=== PATIENT | female | born 1990 | race Caucasian/White ===

== ENCOUNTER → 2017-03-07 | Outpatient (CLI) | payer OTHER ==
[~2017-03-07] MED LIST: ALBUAER2 INH; BCPILLS PO; [UNRECOGNIZED DRUG - REMARK]
== END | disposition home or self-care (01) ==
LOC: C.PAPS 09:12
PROVIDERS: ATTEND Obstetrics & Gynecology
DX: Z01.419 Encounter for gynecological examination (general) (routine) without abnormal findings (principal)

== ENCOUNTER 2025-02-03 07:53 | Inpatient (IN) ==
[2025-02-03] MEDS ORDERED: LIDOCAINE 1% LOCAL 20 ML VIAL INFIL PRN (07:57)
[2025-02-03] MEDS ORDERED: OXYTOCIN 30 UNITS/NSS 30 UNITS/500 ML BAG IV PRN (07:57)
[2025-02-03 08:30] LABS: Hematocrit (blood only) 31.9 % (37.0-47.0); Hemoglobin 11.1 g/dl (12.0-16.0); Mean Corpuscular Hemoglobin 32.8 pg (25.0-34.0); Mean Corpuscular Volume 94.4 fL (80.0-100.0); Platelet Count 189 K/uL (130-400); RDW Standard Deviation 50.1 fL (36.4-46.3); Red Blood Count 3.38 M/uL (4.20-5.40); White Blood Count 8.09 K/ul (4.8-10.8)
[2025-02-03] MEDS: LACTATED RINGER'S 1,000 ML IV PRN (08:36)
[2025-02-03] MEDS: OXYTOCIN 30 UNITS/NSS 30 UNITS/500 ML BAG IV PRN (08:41)
--- NOTE | 2025-02-03 08:53 | History & Physical Report ---
Date of Service February 03, 2025 Assessment & Plan (1) 40 weeks gestation of : Plan Land bulb placed Pitocin Arom when indicated Monitor tracing, category 1 Admission and Anticipated Discharge Date Admission Date: February 03, 2025 History of Present Illness Chief Complaint: IOL Primary Care Provider: NABOR Baez 34 yo at 40w3d admitted for IOL for postdates. Patient denies contractions, fluid loss, bloody show. Active movement. She goes to regular OB appointments. She takes vitamins and docusate sodium as needed. Denies MURILLO, CP, SOB, N/V/D, LE pain. GBS neg, A+ blood type Allergies Allergy/AdvReac Type Severity Reaction Status Date / Time No Known Drug Allergies Allergy Verified 02/02/25 10:18 ARTIFICIAL CINNAMON FLAVORING Allergy Mild Uncoded 02/02/25 10:18 Home Medications Medication Instructions Recorded Confirmed Type 21-iron fu-folic acid PO 07/09/24 02/02/25 History [ Complete] breast pump #1 ea 12/16/24 02/02/25 Rx docusate sodium 100 mg capsule 100 mg PO DAILY 12/16/24 02/02/25 History (Colace) Patient History Medical History Eczema History of chicken pox Surgical History S/P arthroscopic knee surgery S/P ACL reconstruction S/P wisdom tooth extraction Family History (Updated 07/30/24 @ 07:12 by ZAHRAA Amaya) Grandmother (Paternal) Uterine cancer Grandfather (Maternal) Heart disease Myocardial infarction Mother Pre-diabetes Denies family history of Ovarian cancer Prostate cancer Breast cancer Colorectal cancer Social History (Updated 07/30/24 @ 07:13 by ZAHRAA Amaya) Smoking Status: Never smoker Second Hand Exposure: No; Do You Dip or Chew Tobacco: No; Hx Alcohol Use: No Hx Substance Use: No Preferred Language: Burkinan marital status: marital status details: Jacobo Garza (38) [phone] Current Living Situation: Spouse Current Living Situation Comment: lives with spouse, cats-spouse changing litter current occupational status: employed 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 Feels Safe at Home: Yes Childhood Exposure to Second-Hand Smoke: No Dental Care, Regularly: Yes Physical Activity Frequency: 3-4 Times per Week Seatbelt Use: always Sunscreen Use: Yes OB History : 1 Full term: 0 Premature: 0 Total Number of Induced Abortions: 0 Total Number of Spontaneous Abortions: 0 Ectopics: 0 Multiple births: 0 Number of Living Children: 0 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 History Last menstrual period: Yes Menstrual reliability: definite Flow: normal Menstrual regularity: regular Monthly: Yes Age at menarche: 13 On control pills at conception: No Date of positive home test: 05/28/24 Menstrual history comments: cycles 28-30 days Details: last >2-3 years ago Review of Systems All systems reviewed & are unremarkable except as noted in HPI & below Physical Exam Constitutional: WD/WN, vitals as above Respiratory: normal respiratory effort, lungs clear to auscultation Cardiovascular: RRR, no murmur, no edema Gastrointestinal (Abdomen): normal bowel sounds, soft, nontender, no hepatosplenomegaly +gravid Skin: no rashes, warm and dry Psychiatric: A+Ox3, euthymic affect Genitourinary: Manual OB Exam: + cervical dilation 1 cm, + cervical effacement (75%) and + station -2 EFW: 7-[address] Quintanilla Results & Data Vital Signs (Past 12 Hours) Vital Signs Temp Pulse Resp BP 02/03/25 08:08 112 H 105/61 02/03/25 08:07 18 02/03/25 08:07 36.8 C 112 H 18 105/61 Laboratory Results [facility] [address] [place] [address] Obstetrics Visit Signed Patient: TIM REYES Service Date: 02/02/25 MR#: [id number] Ref Phy: Ela Quintanilla MD Acct ID:[id number] Emma Phy: Nicole Leung Date: 1990 Location: [facility] cc: Ela Quintanilla MD~ *NOTICE TO RECEIVING REPUBLICAN/AGENCY This information is strictly Confidential and protected under [place] law. [place] law prohibits you from making any further disclosure of this information unless further disclosure is expressly permitted by the written consent of the person to whom it pertains or is authorized by law. A general authorization for the release of medical or other information is not sufficient for this purpose. Physician Practice accepts no responsibility if the information is made available to any other person, INCLUDING THE PATIENT. Medical Pot Fisher Pot Fisher Determination Visit Includes a Sensitive Exam of the Pt/Pt Requested: Yes Pt Informed of [facility]'s Recommendation for a Medical Pot Fisher: Yes Presence of a Medical Pot Fisher: Accepts Visit ANTOINETTE Calculator Estimated Delivery Date Method Current WG Current Estimate 01/31/25 LMP (Certain) 40w 2d Other Estimates 01/28/25 Ultrasound #1 40w 5d LMP: 04/26/24 : 1 Full term: 0 Premature: 0 Total Number of Induced Abortions: 0 Total Number of Spontaneous Abortions: 0 Ectopics: 0 Multiple births: 0 Number of Living Children: 0 and Delivery Plans AMA Weekly NST's @ 36 weeks IOL 02/03 OB Visit Log Initial Weight: 175 lb 3.2 oz Date EGA Weight FH Pres FHR FM CX BP Alb Glu Edema NOV Prov Notes 07/09/24 10w 4d Nob nurse visit via phone consult.AH 07/18/24 11w 6d 175 lb 3.2 oz(+0 oz) 12 +us c/l/h 128/82 0 4w SMP NOB labs, uacs - ML 08/15/24 15w 6d 176 lb 12.8 oz(+1 lb 9.6 oz) 154 1 0 4w JFD GTT, Unsure of MSAFP- MK 09/12/24 19w 6d 176 lb 12.8 oz(+1 lb 9.6 oz) 20 145 Active 0 4w SMP SP 10/10/24 23w 6d 185 lb 12.8 oz(+10 lb 9.6 oz) 24 140s Active 108 0 4w LAS SP 11/06/24 27w 5d 189 lb(+13 lb 12.8 oz) 28 135 Active 108/7 2 0 2w LAS 28wk labs, 1hr gtt, uacs, Tdap, papers. c/o reflux(taking tums) - MLFMLA, 28wk labs, 1hr gtt, uacs, Tdap, papers. c/o reflux(taking tums) - ML 11/21/24 29w 6d 187 lb 12.8 oz(+12 lb 9.6 oz) 30 130s Active 0 2w LAS SP 12/03/24 31w 4d 190 lb 12.8 oz(+15 lb 9.6 oz) 32 150 Active 0 2w MMC SP 12/16/24 33w 3d 192 lb 12.8 oz(+17 lb 9.6 oz) 34 140 Active 122/78 0 2w SMP MK 12/30/24 35w 3d 196 lb 8 oz(+21 lb 4.8 oz) 35 140 Active 1 0 1w KBB ML 01/06/25 36w 3d 198 lb 9.6 oz(+23 lb 6.4 oz) 36 V NST Active 0 1w MLN NST #1 AMA, GBS today - SP 01/13/25 37w 3d 199 lb 6.4 oz(+24 lb 3.2 oz) Term V NST Active 124/82 0 1w MLN NST #2 AMA - ML 01/20/25 38w 3d 201 lb(+25 lb 12.8 oz) V NST Active 12 0 1w MLN NST #3 AMA- MK 01/28/25 39w 4d 204 lb 11.2 oz(+29 lb 8 oz) V NST Activ e c/l/h 116/78 1w SLN NST #4 AMA - SP 02/02/25 40w 2d 203 lb 11.2 oz(+28 lb 8 oz) Term V NST A ctive c/75/-2 134/72 0 Other: JBS NST #5 AMA, PD - ML NST #5 AMA, PD. Cervix ck - ML Comments Visit Date: 02/02/25 Last Updated by: Ela Quintanilla MD IOL tomorrow. Cervix closed but very soft; I think amenable to land placement with pit in the AM, will plan for that. Visit Date: 01/28/25 Last Updated by: Betina Pak MD NST reactive. Reviewed IOL timing, desires 02/03 for postdates Visit Date: 01/20/25 Last Updated by: NABOR Guzman Patient states feeling well. Denies contractions, leaking of fluid, and states feeling movement. NST reassuring but non-reactive; BPP 01/16. Di scussed movement counts. Continue weekly NSTs. Questions answered Visit Date: 01/13/25 Last Updated by: NABOR Guzman Patient states feeling well. Denies contractions, leaking of fluid, and states feeling movement. More discomforts recently; discussed relief measures. GBS negative; reviewed with patient. NST reactive today. Vertex by US. Labor precautions reviewed Visit Date: 01/06/25 Last Updated by: NABOR Guzman Patient states feeling well. Denies contractions, leaking of fluid, and states feeling movement. NST reactive today. GBS today. Continue weekly NSTs Visit Date: 12/30/24 Last Updated by: Caroline Burgos, DO GBS, NST next week. Visit Date: 12/16/24 Last Updated by: Manjula Gomes MD, FACOG has felt some more larger volume voids this am. no burning. will monitor. Visit Date: 12/03/24 Last Updated by: Victorina Albarado MD, FACOG baby active. some leg swelling at end of the day. no BH ctns or change in discharge Visit Date: 11/21/24 Last Updated by: NABOR Pemberton Feeling well. Denies N/V. +PNV. Denies, leaking of fluid, vaginal bleeding and contractions. Good movement. Reviewed 28wk labs. Passed 2hr gtt. Discussed GWG goals. Visit Date: 11/06/24 Last Updated by: NABOR Pemberton Feeling well. Denies N/V. +PNV. Denies, leaking of fluid, vaginal bleeding and contractions. Good movement. + hiccups on exam today. c/o reflux - discussed pepcid in conjunction with Tums. Also with some constipation - discussed hydration and Colace. 28wk labs, gtt, Tdap today. FMLA papers given to Karyn. Visit Date: 10/10/24 Last Updated by: NABOR Pemberton Denies N/V. +PNV. Denies leaking of fluid, vaginal bleeding and cramping. Feeling baby move. 28wk gtt NOV. Visit Date: 09/12/24 Last Updated by: Manjula Gomes MD, FACOG normal jennifer u/s today. limitations of u/s reviewed. reviewed all labs. Visit Date: 08/15/24 Last Updated by: Christian Wong MD, FACOG u/s ordered Visit Date: 07/18/24 Last Updated by: Manjula Gomes MD, FACOG nob, reviewed testing pnl pnv. Discussion held regarding all possible aneuploidy testing, both screening and diagnostic. Timing of these tests and benefits and risks of timing of test particularly for NIPT reviewed. These tests are personal choice. Patient given time to ask questions. Inheritable genetic screening based on ethnicity also discussed/offered, including CF, SMA. AMA, reviewed nsts wkly at 36wks. likely will proceed with nipt, not sure about cf/sma. Nursing Visit Reasons: NST/TERRANCE NEEDS TO BE THIS DAY W/OB1 Allergies No Known Drug Allergies Allergy (Verified 02/02/25 10:18) ARTIFICIAL CINNAMON FLAVORING Allergy (Mild, Uncoded 02/02/25 10:18) Medications 21-iron fu-folic acid [ Complete] PO 07/09/24 [History Confirmed 02/02/25] breast pump #1 ea 12/16/24 [Rx Confirmed 02/02/25] docusate sodium 100 mg capsule (Colace) 100 mg PO DAILY 12/16/24 [History Confirmed 02/02/25] LMP: 04/26/24 Patient Confirmed : Yes Travel Screen Exposure Risk Identification Exposure to or Close Contact to Anyone Dx Infectious Disease (Last 10 Days): No Symptom Evaluation Are You having any Infectious Disease Symptoms: No Infectious Disease Testing Hx Infectious Disease Testing in Last 30 Days: No [facility] Problem List (Updated 12/16/24 @ 11:07 by Manjula Gomes MD, FACOG) Encounter for care and examination of lactating mother Encounter for anatomic survey Early stage of Elderly primigravida Medical History Eczema History of chicken pox . Surgical History S/P arthroscopic knee surgery S/P ACL reconstruction S/P wisdom tooth extraction . Family History (Updated 07/30/24 @ 07:12 by ZAHRAA Amaya) Grandmother (Paternal) Uterine cancerGrandfather (Maternal) Heart disease Myocardial infarctionMother Pre-diabetesDenies family history of Ovarian cancer Prostate cancer Breast cancer Colorectal cancer . 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 Feels Safe at Home: Yes Childhood Exposure to Second-Hand Smoke: No Dental Care, Regularly: Yes Physical Activity Frequency: 3-4 Times per Week Seatbelt Use: always Sunscreen Use: Yes History : 1 Full term: 0 Premature: 0 Total Number of Induced Abortions: 0 Total Number of Spontaneous Abortions: 0 Ectopics: 0 Multiple births: 0 Number of Living Children: 0 Menstrual History Last menstrual period: Yes Menstrual reliability: definite Flow: normal Menstrual regularity: regular Monthly: Yes Age at menarche: 13 On control pills at conception: No Date of positive home test: 05/28/24 Menstrual history comments: cycles 28-30 days Details: last >2-3 years ago Medical History Medical History: Diabetes: Neg, Hypertension: Neg, Heart Disease: Neg, Autoimmune Disease: Neg, Kidney Disease/UTI: Neg, Neurologic/Epilepsy: Neg, Psychiatric: Neg, Depression/PPD: Neg, Hepatitis/Liver Disease: Neg, Varicosities/Phlebitis: Neg, Thyroid Dysfunction: Neg, Trauma/Violence: Neg, History of Blood Transfusion: Neg, Hematologic Disorders: Neg, GI Disorders: Neg, Dermatologic Disorders: Pos (hx eczema), D (Rh) Sensitized: Neg, Pulmonary(TB, Asthma): Neg, Seasonal Allergies: Neg, Drug/Latex Allergic Reactions: Neg, 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, 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: Neg, Operations/Hospitalizations(Year/reason): Pos (anterior cruciate ligament reconstruction, arthroscopic knee, wisdom teeth), Anesthesia Complications: Neg, Hx of abnml PAP: Neg, Uterine Anomaly/JULIUS: Neg, Infertilitiy: Neg, ART treatment: Neg, Complications: Neg, Cancer: Neg, Relevant Family Hx: Neg and Other: Pos (+ chicken pox) Tobacco: Denies use Alcohol: Denies use Illicit/Recreational Drugs: Denies use Symptoms since LMP Symptoms since LMP: nausea, fatigue, breast tenderness Infection History & Risk Profile Infection History: Hx Chlamydia: No, Hx Genital Herpes: No, Hx Gonorrhea: No, Hx Hepatitis: No, Hx HIV/AIDS: No, Hx Human Papilloma Virus (HPV): No, Hx Syphilis: No, Hx Tuberculosis: No, Rash or viral illness since LMP: Yes (eczema) and Prior GBS infected child: No Genetic Screening & Stock Raiser Genetic Screening/Teratology Counseling - Includes patient, baby's father, or anyone in either family with: Genetic Screening and Stock Raiser: Yes 1. Patient's age 35 years or older as of estimated date of delivery, No 2. Thalassemia (Japanese, Botswanan, Mediterranean, or Background); MCV less than 80, No 3. Neural Tube Defect (Meningomyelocele, Spina Bifida, or Anencephaly), No 4. Hepatitis B,C, No 5. Down Syndrome, No 6. Wilver-Sachs (Ashkenazi Alevism, Cajun, Bengali [place]), No 7. Sujata Disease (Ashkenazi Alevism), No 8. Familial Dysautonomia (Ashkenazi Alevism), No 9. Sickle Cell Disease or Trait (), No 10. Hemophilia or other blood disorders, No 11. Muscular Dystrophy, No 12. Cystic Fibrosis, No 13. Dunlap's Chorea, No 14. Mental Retardation/Autism, No 15. Other inherited genetic or chromosomal disorder, No 16. Maternal Metabolic Disorder (EG,TYPE 1 Diabetes, PKU), No 17. Patient or baby's father had a child with defects not listed above, No 18. Recurrent loss or a stillbirth, No 19. Medications (including supplements, vitamins, herbs or otc drugs)/illicit/recreational drugs/alcohol since last menstrual period and No 20. Any other Comments/Counseling: spouse healthy, fm hx: unremarkable Initial Phyiscal Exam Initial Physical Examination Date: 07/18/24 Initial Physical Exam: 1. HEENT: normal, 4. Thyroid: normal, 5. Breasts: normal, 6. Lungs: normal, 7. Heart: normal, 8. Abdomen: normal, 9. Extremities: normal, 10. Skin: normal, 11. Lymph Nodes: normal, 12. Vulva: normal, 13. Vagina: normal, 14. Cervix: normal and 15. Adnexa: normal Comments (Number and explain abnormals): +fhts on u/s Exam By:: Eliseo Source: [employer] Ed First Trimester Education Checklist Plans/Education - by Trimester First Trimester Education: HIV and other routine tests: discussed, Influenza vaccine: discussed, Nutrition and weight gain counseling: special diet: discussed, Exercise: discussed (walking), Use of any medications (including supplements, vitamins, herbs, or OTC drugs): discussed, Environmental/work hazards: discussed, Travel: discussed, Seatbelt use: discussed, Toxoplasmosis precautions (cats/raw meat): discussed, Childbirth classes/Hospital facilities: discussed, Anticipated course of care: discussed and Indications for ultrasound: discussed Third Trimester Education Checklist Third Trimester Education: Safe Sleep: discussed and Education([id number]): discussed Labs Lab Results OB Labs: Blood Type A Positive 07/18/24 Antibody Screen NEGATIVE 07/18/24 Hgb 11.3 g/dl (12.0-16.0) L 11/06/24 Hct 33.3 % (37.0-47.0) L 11/06/24 MCV 91.5 fL (80.0-100.0) 07/18/24 Plt Count 249 K/uL (130-400) 07/18/24 Rubella IgG Antibody Immune (Immune) 07/18/24 Treponema pallidum Ab Negative (Negative) 11/06/24 Hep Bs Antigen Negative (Negative) 07/18/24 Hepatitis C Antibody Negative (Negative) 07/18/24 HIV 1&2 Ab/P24 Ag 4thGn Negative (Negative) 07/18/24 Glucose 1 Hr 50 gm 139 mg/dl (70-130) H 11/06/24 Maternal Serum AFP 17.3 ng/mL 08/15/24 OB Optional Labs: Chlamydia trachomatis RNA Not Detected (NotDetected) 07/18/24 Neisseria gonorrhoeae RNA Not Detected (NotDetected) 07/18/24 Alpha Fetoprotein Triple Screen SEE NOTE 08/15/24 Monitoring External Monitor HR: 150 Variability: moderate Accelerations: present Decelerations: absent Contractions: none Category 1 tracing Resident Activity Tracking Resident Involvement: Resident Care Provided Care Provided: OB Delivery
[2025-02-03] MEDS ORDERED: BUPIVACAINE 0.25% PF 30 ML VIAL EPI PRN (14:14)
[2025-02-03] MEDS ORDERED: NALBUPHINE HCL INJ 10 MG/ML AMP IV PRN (14:14)
[2025-02-03] MEDS ORDERED: ROPIVACAINE 0.5% PF 5 MG/ML 20 ML VIAL EPI PRN (14:14)
[2025-02-03] MEDS ORDERED: NALOXONE HCL 0.4 MG/1 ML VIAL/CARP IV PRN (14:14)
[2025-02-03] MEDS ORDERED: diphenhydrAMINE 50 MG/ML VIAL IV PRN (14:14)
[2025-02-03] MEDS ORDERED: NALOXONE HCL 1 MG in SODIUM CHLORIDE 0.9% 1,000 ML IV PRN (14:14)
[2025-02-03] MEDS ORDERED: SODIUM CHLORIDE 0.9% PF INJ 10 ML VIAL EPI PRN (14:14)
[2025-02-03] MEDS ORDERED: LIDOCAINE 2% MPF LOCAL 5 ML VIAL EPI PRN (14:14)
--- NOTE | 2025-02-03 14:14 | Anesthesiology Consultation ---
Date of Service February 03, 2025 Assessment & Plan Chart Review Chart Review: Acceptable Risk for Labor Epidural Consults Requested none History Height/Weight Height: 5 ft 5 in Weight: 92.079 kg Allergies Allergy/AdvReac Type Severity Reaction Status Date / Time No Known Drug Allergies Allergy Verified 02/02/25 10:18 ARTIFICIAL CINNAMON FLAVORING Allergy Mild Uncoded 02/02/25 10:18 Medications Home Medications Medication Instructions Recorded Confirmed Last Taken 21-iron fu-folic acid 1 tab PO DAILY 07/09/24 02/03/25 02/03/25 04:00 [ Complete] breast pump #1 ea 12/16/24 02/02/25 Unknown docusate sodium 100 mg capsule 100 mg PO DAILY PRN Constipation 12/16/24 02/03/25 Unknown (Colace) Active Medications Generic Name Dose Route Start Last Admin Trade Name Freq PRN Reason Stop Dose Admin Lactated Ringer's 1,000 mls @ 125 mls/hr 02/03/25 07:57 02/03/25 14:11 Lr IV 02/05/25 07:56 125 mls/hr .Q8H PRN Infusion L&D Protocol Protocol Oxytocin 30 units in 500 mls @ 6 mls/hr 02/03/25 08:20 02/03/25 13:20 Pitocin 30 Units/Nss IV 02/05/25 08:19 0.36 units/hr .Q24H PRN 6 mls/hr Labor Induction/Augmentation Titration Protocol 0.36 UNITS/HR Past Medical History Medical History Eczema History of chicken pox Past Family History Family History Grandmother (Paternal) Uterine cancer Grandfather (Maternal) Heart disease Myocardial infarction Mother Pre-diabetes Denies family history of Ovarian cancer Prostate cancer Breast cancer Colorectal cancer Past Surgical History Surgical History S/P arthroscopic knee surgery S/P ACL reconstruction S/P wisdom tooth extraction Social History Smoking Status: Never smoker Do You Dip or Chew Tobacco: No Hx Alcohol Use: No Hx Substance Use: No substance use type: does not use Physical Exam Vital Signs Last Vital Signs Temp 36.9 C 02/03/25 11:32 Pulse 85 02/03/25 14:08 Resp 18 02/03/25 13:00 BP 108/67 02/03/25 14:01 Pulse Ox 98 02/03/25 14:08 O2 Del Method Room Air 02/03/25 08:50 Testing Laboratory Results 02/03/25 08:17
[2025-02-03] MEDS: LIDOCAINE 2%/EPINEPHRINE 1:200,000 20 ML PF ONE (14:45)
[2025-02-03] MEDS: fentANYL 2 MCG/ML BUPIVacaine 0.125%-NSS 100ML BAG ONE (14:46)
[2025-02-03] MEDS: BUPIVACAINE 0.25% PF 30 ML VIAL ONE (14:46)
[2025-02-03] MEDS: SODIUM CHLORIDE 0.9% PF INJ 10 ML VIAL EPI STA (18:09)
[2025-02-03] MEDS: LIDOCAINE 2%/EPINEPHRINE 1:200,000 20 ML PF EPI STA (18:09)
[2025-02-03] MEDS: BUPIVACAINE 0.25% PF 30 ML VIAL EPI STA (18:09)
[2025-02-03] MEDS: SODIUM CHLORIDE 0.9% PF INJ 10 ML VIAL ONE (18:09)
--- NOTE | 2025-02-03 21:06 | Labor Progress Brief Note ---
Date of Service February 03, 2025 Subjective Recent events: Per RN, patient asked to sit upright. As soon as she changed position her blood pressure dropped to 83/51 and pulse dropped to 82, and she vomited. At the same time her heart tracing began to exhibit marked variability and variable decels to a candace in the 90s with rapid swings back up to 160s, and moderate variability throughout. Cervix checked per RN at 6/100/0. I came to bedside right after cervix check, having noted the tracing change. Patient seen in rm [id number] where she is lying on her side watching the monitor with her mother at bedside holding her hand. She feels shaky but says it's improving over the last few minutes. She voices agreement with her mom who tells us the patient has a history of severe anxiety and is really feeling anxious/stressed by the labor process. Assessment & Plan (1) 40 weeks gestation of : Plan: Induction for postdates, has progressed to 6cm with land followed by pitocin. FHT intermittently cat 2, but at the moment are recovering. Latest episode of Cat 2 tracing appears to be 2/2 hypotensive episode which has since resolved, current BP improved to 113/65. Unclear if this was a vagal/autonomic event due to her severe anxiety, or had another cause, but she is responding to usual resuscitative measures. For now will observe closely and resume IOL when able per tracing. Admission and Anticipated Discharge Date Admission Date: February 03, 2025 Physical Exam Genitourinary: Cvx check per RN As described above, hypotension --> emesis --> FHT change to Cat 2 with decels, which prompted my visit. [place] Q2min while pit was in use, but pit was turned off during the FHT pattern change and an IVF bolus was started. [place] then spaced to Q4-5m. FHT thereafter settled into a baseline of 170, mod rosemary, no accels and no decels for about 20 min. Results & Data Vital Signs (Past 12 Hours) Vital Signs Temp Pulse Resp BP Pulse Ox O2 Del Method 02/03/25 20:53 90 100 02/03/25 20:49 83 113/65 02/03/25 20:48 83 100 02/03/25 20:44 18 02/03/25 20:44 98.8 F 18 02/03/25 20:43 85 100 08/26/25 20:38 91 H 100 02/03/25 20:35 82 119/69 02/03/25 20:33 102 H 100 02/03/25 20:28 105 H 100 02/03/25 20:25 130 H 94/66 L 02/03/25 20:23 139 H 99 02/03/25 20:20 93 H 83/51 L 02/03/25 20:19 88 80 L 02/03/25 20:18 91 H 99 02/03/25 20:13 99 H 99 02/03/25 20:11 107 H 117/60 02/03/25 20:10 126 H 88 L 02/03/25 20:08 111 H 100 02/03/25 20:05 105 H 88 L 02/03/25 20:03 100 H 99 02/03/25 19:58 90 100 02/03/25 19:53 107 H 100 02/03/25 19:50 87 111/56 L 93 02/03/25 19:48 108 H 98 02/03/25 19:43 98 H 98 02/03/25 19:38 97 H 99 02/03/25 19:35 105 H 109/62 02/03/25 19:33 101 H 99 02/03/25 19:28 107 H 98 02/03/25 19:23 92 H 98 02/03/25 19:21 83 111/65 02/03/25 19:19 89 94 02/03/25 19:18 93 H 99 02/03/25 19:13 94 H 97 02/03/25 19:12 90 94 02/03/25 19:08 90 99 02/03/25 19:06 88 117/70 02/03/25 19:05 Room Air 02/03/25 19:05 94 H 93 02/03/25 19:03 98.6 F 90 16 98 02/03/25 18:59 85 93 02/03/25 18:58 83 95 02/03/25 18:53 98 H 93 02/03/25 18:51 85 121/63 02/03/25 18:48 96 H 98 02/03/25 18:43 97 H 99 02/03/25 18:38 88 97 02/03/25 18:34 110 H 121/54 L 02/03/25 18:33 97 H 99 02/03/25 18:30 90 105/56 L 02/03/25 18:28 92 H 99 02/03/25 18:25 101 H 93 02/03/25 18:23 99 H 98 02/03/25 18:19 97 H 91 02/03/25 18:18 88 97 02/03/25 18:13 99 H 91 02/03/25 18:08 89 100 02/03/25 18:05 93 H 100/55 L 02/03/25 18:03 93 H 99 02/03/25 17:58 91 H 99 02/03/25 17:53 101 H 100 02/03/25 17:52 88 93 02/03/25 17:49 85 119/72 02/03/25 17:48 78 99 02/03/25 17:47 95 H 93 02/03/25 17:43 86 99 02/03/25 17:40 98.2 F 81 18 90 02/03/25 17:38 85 98 02/03/25 17:37 78 118/67 02/03/25 17:34 77 182/134 H 02/03/25 17:33 84 100 02/03/25 17:31 82 92 02/03/25 17:30 20 02/03/25 17:30 20 02/03/25 17:28 81 100 02/03/25 17:25 103 H 89 L 02/03/25 17:23 90 183/133 H 100 02/03/25 17:19 91 H 93 02/03/25 17:18 92 H 99 02/03/25 17:13 86 100 02/03/25 17:08 79 100 02/03/25 17:06 74 90 02/03/25 17:03 77 100 02/03/25 16:58 61 100 02/03/25 16:53 94 H 97 02/03/25 16:49 71 92/57 L 02/03/25 16:48 79 97 02/03/25 16:43 84 98 02/03/25 16:38 87 98 02/03/25 16:34 84 100/58 L 02/03/25 16:33 84 96 02/03/25 16:28 98 H 98 02/03/25 16:23 82 98 02/03/25 16:20 70 108/66 02/03/25 16:18 71 96 02/03/25 16:13 78 98 02/03/25 16:10 72 113/66 02/03/25 16:08 80 97 02/03/25 16:03 79 97 02/03/25 16:00 18 02/03/25 16:00 18 02/03/25 15:58 80 98 02/03/25 15:53 75 99 02/03/25 15:50 89 102/57 L 02/03/25 15:48 89 98 02/03/25 15:43 83 97 02/03/25 15:38 87 96 02/03/25 15:35 100 H 105/58 L 02/03/25 15:33 88 97 02/03/25 15:28 110 H 96 02/03/25 15:23 96 H 97 02/03/25 15:19 101 H 107/61 02/03/25 15:18 96 H 96 02/03/25 15:14 97 H 107/62 02/03/25 15:13 98.1 F 88 18 96 02/03/25 15:09 86 108/63 02/03/25 15:08 78 96 02/03/25 15:07 73 108/65 02/03/25 15:05 78 103/57 L 02/03/25 15:03 97 02/03/25 15:03 93 H 02/03/25 15:03 78 111/56 L 02/03/25 15:01 82 02/03/25 15:01 92 H 121/59 L 81 L 02/03/25 14:58 77 99 02/03/25 14:57 94 H 112/72 02/03/25 14:55 83 109/62 02/03/25 14:53 95 H 114/84 98 02/03/25 14:51 93 H 111/75 02/03/25 14:49 93 H 113/69 02/03/25 14:48 99 H 98 02/03/25 14:45 89 120/76 02/03/25 14:43 101 H 118/76 98 02/03/25 14:41 87 117/73 02/03/25 14:39 96 H 131/80 02/03/25 14:38 94 H 96 02/03/25 14:37 81 123/81 02/03/25 14:35 101 H 118/78 02/03/25 14:33 91 H 97 02/03/25 14:28 95 H 98 02/03/25 14:23 91 H 98 02/03/25 14:18 91 H 99 02/03/25 14:13 95 H 97 02/03/25 14:08 85 98 02/03/25 14:01 90 108/67 02/03/25 13:58 90 97 02/03/25 13:53 84 98 02/03/25 13:48 72 97 02/03/25 13:13 85 116/55 L 02/03/25 13:00 18 02/03/25 13:00 18 02/03/25 12:01 83 109/58 L 02/03/25 11:32 98.4 F 02/03/25 11:30 18 02/03/25 11:30 18 02/03/25 11:01 75 115/66 02/03/25 10:30 18 02/03/25 10:30 18 02/03/25 10:02 90 109/62 02/03/25 10:00 16 02/03/25 10:00 16 02/03/25 09:01 85 107/64 Coding Level of Care Code None Diagnoses 40 weeks gestation of Z3A.40
[2025-02-03] MEDS: fentANYL 2 MCG/ML BUPIVacaine 0.125%-NSS 100ML BAG EPI PRN (21:23)
--- NOTE | 2025-02-03 21:53 | Anesthesia Procedure Note ---
Date of Service February 03, 2025 Anesthesia Epidural Re-Dose Vital Signs Temp Pulse Resp BP Pulse Ox O2 Del Method 37.1 C 102 H 18 128/75 98 Room Air 02/03/25 20:44 02/03/25 21:50 02/03/25 20:44 02/03/25 21:50 02/03/25 21:48 02/03/25 19:05 Notes Pain Intensity: 6 Dilatation (cm): 6.0 Effacement (%): 100 Called by nursing to evaluate epidural as the patient is having increased pain. The epidural was re-dosed with the following medications (all medications via epidural route) after negative aspiration of the epidural catheter for CSF/HEME. 5cc 2% Lidocaine with epi via epidural After Epidural Re-Dose Mental Status: alert / awake / arousable and participated in evaluation Pain: improving with treatment Airway Patency, RR, SpO2: stable & adequate BP & HR: stable & adequate
--- NOTE | 2025-02-03 22:33 | Labor Progress Brief Note ---
Date of Service February 03, 2025 Subjective Recent epidural redose due to pain. Patient got relief of contraction pain, however had hypotension and nausea/emesis shortly after redose. Assessment & Plan (1) 40 weeks gestation of : Plan Elevated baseline but good variability and accels. No maternal fever, urine output is good. Continue close obs. Likely related to recent epidural redose and treatment of resulting hypotension with ephedrine. Zofran to be added for prn nausea per request of patient. Admission and Anticipated Discharge Date Admission Date: February 03, 2025 Physical Exam Genitourinary: [place] Q4, pit @ 2 FHT 165 mod rosemary +acc -dec Cvx 6/100/0 Results & Data Vital Signs (Past 12 Hours) Vital Signs Temp Pulse Resp BP Pulse Ox O2 Del Method 02/03/25 22:29 162 H 132/68 02/03/25 22:28 159 H 84 L 02/03/25 22:25 111 H 82/41 L 02/03/25 22:23 104 H 84 L 02/03/25 22:18 115 H 91 02/03/25 22:13 116 H 99 02/03/25 22:12 104 H 99/53 L 02/03/25 22:10 103 H 102/57 L 02/03/25 22:08 99 02/03/25 22:08 115 H 02/03/25 22:08 121 H 87/59 L 02/03/25 22:06 123 H 83/45 L 02/03/25 22:03 118 H 100 02/03/25 22:02 110 H 81/53 L 02/03/25 22:00 111 H 79/51 L 02/03/25 21:58 99 02/03/25 21:58 112 H 02/03/25 21:58 118 H 90/51 L 02/03/25 21:56 117 H 93/52 L 02/03/25 21:54 107 H 108/54 L 02/03/25 21:53 118 H 78 L 02/03/25 21:50 102 H 128/75 02/03/25 21:48 119 H 98 02/03/25 21:43 128 H 99 02/03/25 21:38 107 H 100 02/03/25 21:36 99 H 136/75 02/03/25 21:33 97 H 100 02/03/25 21:28 107 H 100 02/03/25 21:23 102 H 100 02/03/25 21:20 100 H 131/56 L 94 02/03/25 21:18 93 H 98 02/03/25 21:13 104 H 98 02/03/25 21:08 98 H 99 02/03/25 21:04 88 113/68 02/03/25 21:03 97 H 100 02/03/25 20:58 97 H 100 02/03/25 20:53 90 100 02/03/25 20:49 83 113/65 02/03/25 20:48 83 100 02/03/25 20:44 18 02/03/25 20:44 98.8 F 18 02/03/25 20:43 85 100 02/03/25 20:38 91 H 100 02/03/25 20:35 82 119/69 02/03/25 20:33 102 H 100 02/03/25 20:28 105 H 100 02/03/25 20:25 130 H 94/66 L 02/03/25 20:23 139 H 99 02/03/25 20:20 93 H 83/51 L 02/03/25 20:19 88 80 L 02/03/25 20:18 91 H 99 02/03/25 20:13 99 H 99 02/03/25 20:11 107 H 117/60 02/03/25 20:10 126 H 88 L 02/03/25 20:08 111 H 100 02/03/25 20:05 105 H 88 L 02/03/25 20:03 100 H 99 02/03/25 19:58 90 100 02/03/25 19:53 107 H 100 02/03/25 19:50 87 111/56 L 93 02/03/25 19:48 108 H 98 02/03/25 19:43 98 H 98 02/03/25 19:38 97 H 99 02/03/25 19:35 105 H 109/62 02/03/25 19:33 101 H 99 02/03/25 19:28 107 H 98 02/03/25 19:23 92 H 98 02/03/25 19:21 83 111/65 02/03/25 19:19 89 94 02/03/25 19:18 93 H 99 02/03/25 19:13 94 H 97 02/03/25 19:12 90 94 02/03/25 19:08 90 99 02/03/25 19:06 88 117/70 02/03/25 19:05 Room Air 02/03/25 19:05 94 H 93 02/03/25 19:03 98.6 F 90 16 98 02/03/25 18:59 85 93 02/03/25 18:58 83 95 02/03/25 18:53 98 H 93 02/03/25 18:51 85 121/63 02/03/25 18:48 96 H 98 02/03/25 18:43 97 H 99 02/03/25 18:38 88 97 02/03/25 18:34 110 H 121/54 L 02/03/25 18:33 97 H 99 02/03/25 18:30 90 105/56 L 02/03/25 18:28 92 H 99 02/03/25 18:25 101 H 93 02/03/25 18:23 99 H 98 02/03/25 18:19 97 H 91 02/03/25 18:18 88 97 02/03/25 18:13 99 H 91 02/03/25 18:08 89 100 02/03/25 18:05 93 H 100/55 L 02/03/25 18:03 93 H 99 02/03/25 17:58 91 H 99 02/03/25 17:53 101 H 100 02/03/25 17:52 88 93 02/03/25 17:49 85 119/72 02/03/25 17:48 78 99 02/03/25 17:47 95 H 93 02/03/25 17:43 86 99 02/03/25 17:40 98.2 F 81 18 90 02/03/25 17:38 85 98 02/03/25 17:37 78 118/67 02/03/25 17:34 77 182/134 H 02/03/25 17:33 84 100 02/03/25 17:31 82 92 02/03/25 17:30 20 02/03/25 17:30 20 02/03/25 17:28 81 100 02/03/25 17:25 103 H 89 L 02/03/25 17:23 90 183/133 H 100 02/03/25 17:19 91 H 93 02/03/25 17:18 92 H 99 02/03/25 17:13 86 100 02/03/25 17:08 79 100 02/03/25 17:06 74 90 02/03/25 17:03 77 100 02/03/25 16:58 61 100 02/03/25 16:53 94 H 97 02/03/25 16:49 71 92/57 L 02/03/25 16:48 79 97 02/03/25 16:43 84 98 02/03/25 16:38 87 98 02/03/25 16:34 84 100/58 L 02/03/25 16:33 84 96 02/03/25 16:28 98 H 98 02/03/25 16:23 82 98 02/03/25 16:20 70 108/66 02/03/25 16:18 71 96 02/03/25 16:13 78 98 02/03/25 16:10 72 113/66 02/03/25 16:08 80 97 02/03/25 16:03 79 97 02/03/25 16:00 18 02/03/25 16:00 18 02/03/25 15:58 80 98 02/03/25 15:53 75 99 02/03/25 15:50 89 102/57 L 02/03/25 15:48 89 98 02/03/25 15:43 83 97 02/03/25 15:38 87 96 02/03/25 15:35 100 H 105/58 L 02/03/25 15:33 88 97 02/03/25 15:28 110 H 96 02/03/25 15:23 96 H 97 02/03/25 15:19 101 H 107/61 02/03/25 15:18 96 H 96 02/03/25 15:14 97 H 107/62 02/03/25 15:13 98.1 F 88 18 96 02/03/25 15:09 86 108/63 02/03/25 15:08 78 96 02/03/25 15:07 73 108/65 02/03/25 15:05 78 103/57 L 02/03/25 15:03 97 02/03/25 15:03 93 H 02/03/25 15:03 78 111/56 L 02/03/25 15:01 82 02/03/25 15:01 92 H 121/59 L 81 L 02/03/25 14:58 77 99 08/26/25 14:57 94 H 112/72 02/03/25 14:55 83 109/62 02/03/25 14:53 95 H 114/84 98 02/03/25 14:51 93 H 111/75 02/03/25 14:49 93 H 113/69 02/03/25 14:48 99 H 98 02/03/25 14:45 89 120/76 02/03/25 14:43 101 H 118/76 98 02/03/25 14:41 87 117/73 02/03/25 14:39 96 H 131/80 02/03/25 14:38 94 H 96 02/03/25 14:37 81 123/81 02/03/25 14:35 101 H 118/78 02/03/25 14:33 91 H 97 02/03/25 14:28 95 H 98 02/03/25 14:23 91 H 98 02/03/25 14:18 91 H 99 02/03/25 14:13 95 H 97 02/03/25 14:08 85 98 02/03/25 14:01 90 108/67 02/03/25 13:58 90 97 02/03/25 13:53 84 98 02/03/25 13:48 72 97 02/03/25 13:13 85 116/55 L 02/03/25 13:00 18 02/03/25 13:00 18 02/03/25 12:01 83 109/58 L 02/03/25 11:32 98.4 F 02/03/25 11:30 18 02/03/25 11:30 18 02/03/25 11:01 75 115/66 Coding Level of Care Code None Diagnoses 40 weeks gestation of Z3A.40
[2025-02-03] MEDS: ONDANSETRON INJ 2 MG/ML 2 ML VIAL IV PRN (23:14)
--- NOTE | 2025-02-04 01:36 | Labor Progress Brief Note ---
Date of Service February 04, 2025 Subjective Comfortable with epidural Denies fever/chills, denies nausea. Assessment & Plan (1) Non-reassuring cardiotocographic tracing: Plan: FHT Cat 2, and patient has remained at 6cm for quite some time / is remote from delivery. Not seeing reduction in heart baseline with usual resuscitative measures. No maternal fever yet though temp has elevated slightly; likely early development of chorioamnionitis which will progress if continues. Discussed the above with patient and , and recommended at this time that we proceed to section. They are agreeable. All questions answered to stated satisfaction. Azithromycin and Ancef to be given perioperatively. (2) Failure to progress in labor: Admission and Anticipated Discharge Date Admission Date: February 03, 2025 Physical Exam Genitourinary: 6/100/0 LOF clear FHT 170 mod [place] +acc +early and variable decels Results & Data Vital Signs (Past 12 Hours) Vital Signs Temp Pulse Resp BP Pulse Ox O2 Del Method 02/04/25 01:28 125 H 96 02/04/25 01:23 155 H 97 02/04/25 01:18 147 H 95 02/04/25 01:13 139 H 95 02/04/25 01:12 136 H 100/56 L 02/04/25 01:08 106 H 93 02/04/25 01:03 133 H 96 02/04/25 01:01 99.7 F H 02/04/25 00:58 86 93 02/04/25 00:56 86 107/56 L 02/04/25 00:53 100 H 94 02/04/25 00:48 83 94 02/04/25 00:43 95 H 108/59 L 93 02/04/25 00:38 93 H 93 02/04/25 00:33 90 93 02/04/25 00:28 105 H 92 02/04/25 00:27 108 H 109/63 02/04/25 00:23 89 92 02/04/25 00:18 104 H 92 02/04/25 00:15 16 02/04/25 00:15 100.2 F H 16 02/04/25 00:13 98 H 93 02/04/25 00:11 118 H 110/56 L 02/04/25 00:08 98 H 91 02/04/25 00:03 95 H 93 02/03/25 23:58 91 02/03/25 23:58 99 H 02/03/25 23:58 88 112/57 L 02/03/25 23:53 92 H 92 02/03/25 23:48 108 H 92 02/03/25 23:43 101 H 93 02/03/25 23:41 112 H 109/59 L 02/03/25 23:38 93 H 92 02/03/25 23:33 95 H 93 02/03/25 23:28 90 93 02/03/25 23:26 85 110/57 L 02/03/25 23:23 95 H 94 02/03/25 23:18 100 H 96 02/03/25 23:13 96 H 95 02/03/25 23:11 103 H 110/59 L 02/03/25 23:08 130 H 96 02/03/25 23:03 129 H 95 02/03/25 22:58 117 H 94 02/03/25 22:56 109 H 108/53 L 02/03/25 22:53 104 H 94 02/03/25 22:48 104 H 95 02/03/25 22:43 112 H 98 02/03/25 22:42 111 H 118/56 L 02/03/25 22:38 120 H 98 02/03/25 22:37 121 H 133/55 L 02/03/25 22:33 103 H 98 02/03/25 22:31 16 02/03/25 22:31 99.3 F 16 02/03/25 22:29 162 H 132/68 02/03/25 22:28 159 H 84 L 02/03/25 22:25 111 H 82/41 L 02/03/25 22:23 104 H 84 L 02/03/25 22:18 115 H 91 02/03/25 22:13 116 H 99 02/03/25 22:12 104 H 99/53 L 02/03/25 22:10 103 H 102/57 L 02/03/25 22:08 99 02/03/25 22:08 115 H 02/03/25 22:08 121 H 87/59 L 02/03/25 22:06 123 H 83/45 L 02/03/25 22:03 118 H 100 02/03/25 22:02 110 H 81/53 L 02/03/25 22:00 111 H 79/51 L 02/03/25 21:58 99 02/03/25 21:58 112 H 02/03/25 21:58 118 H 90/51 L 02/03/25 21:56 117 H 93/52 L 02/03/25 21:54 107 H 108/54 L 02/03/25 21:53 118 H 78 L 02/03/25 21:50 102 H 128/75 02/03/25 21:48 119 H 98 02/03/25 21:43 128 H 99 02/03/25 21:38 107 H 100 02/03/25 21:36 99 H 136/75 02/03/25 21:33 97 H 100 02/03/25 21:28 107 H 100 02/03/25 21:23 102 H 100 02/03/25 21:20 100 H 131/56 L 94 02/03/25 21:18 93 H 98 02/03/25 21:13 104 H 98 02/03/25 21:08 98 H 99 02/03/25 21:04 88 113/68 02/03/25 21:03 97 H 100 02/03/25 20:58 97 H 100 02/03/25 20:53 90 100 02/03/25 20:49 83 113/65 02/03/25 20:48 83 100 02/03/25 20:44 18 02/03/25 20:44 98.8 F 18 02/03/25 20:43 85 100 02/03/25 20:38 91 H 100 02/03/25 20:35 82 119/69 02/03/25 20:33 102 H 100 02/03/25 20:28 105 H 100 02/03/25 20:25 130 H 94/66 L 02/03/25 20:23 139 H 99 02/03/25 20:20 93 H 83/51 L 02/03/25 20:19 88 80 L 02/03/25 20:18 91 H 99 02/03/25 20:13 99 H 99 02/03/25 20:11 107 H 117/60 02/03/25 20:10 126 H 88 L 02/03/25 20:08 111 H 100 02/03/25 20:05 105 H 88 L 02/03/25 20:03 100 H 99 02/03/25 19:58 90 100 02/03/25 19:53 107 H 100 02/03/25 19:50 87 111/56 L 93 02/03/25 19:48 108 H 98 02/03/25 19:43 98 H 98 02/03/25 19:38 97 H 99 02/03/25 19:35 105 H 109/62 02/03/25 19:33 101 H 99 02/03/25 19:28 107 H 98 02/03/25 19:23 92 H 98 02/03/25 19:21 83 111/65 02/03/25 19:19 89 94 02/03/25 19:18 93 H 99 02/03/25 19:13 94 H 97 02/03/25 19:12 90 94 02/03/25 19:08 90 99 02/03/25 19:06 88 117/70 02/03/25 19:05 Room Air 02/03/25 19:05 94 H 93 02/03/25 19:03 98.6 F 90 16 98 02/03/25 18:59 85 93 02/03/25 18:58 83 95 02/03/25 18:53 98 H 93 02/03/25 18:51 85 121/63 02/03/25 18:48 96 H 98 02/03/25 18:43 97 H 99 02/03/25 18:38 88 97 02/03/25 18:34 110 H 121/54 L 02/03/25 18:33 97 H 99 02/03/25 18:30 90 105/56 L 02/03/25 18:28 92 H 99 02/03/25 18:25 101 H 93 02/03/25 18:23 99 H 98 02/03/25 18:19 97 H 91 02/03/25 18:18 88 97 02/03/25 18:13 99 H 91 02/03/25 18:08 89 100 02/03/25 18:05 93 H 100/55 L 02/03/25 18:03 93 H 99 02/03/25 17:58 91 H 99 02/03/25 17:53 101 H 100 02/03/25 17:52 88 93 02/03/25 17:49 85 119/72 02/03/25 17:48 78 99 02/03/25 17:47 95 H 93 02/03/25 17:43 86 99 02/03/25 17:40 98.2 F 81 18 90 02/03/25 17:38 85 98 02/03/25 17:37 78 118/67 02/03/25 17:34 77 182/134 H 02/03/25 17:33 84 100 02/03/25 17:31 82 92 02/03/25 17:30 20 02/03/25 17:30 20 02/03/25 17:28 81 100 02/03/25 17:25 103 H 89 L 02/03/25 17:23 90 183/133 H 100 02/03/25 17:19 91 H 93 02/03/25 17:18 92 H 99 02/03/25 17:13 86 100 02/03/25 17:08 79 100 02/03/25 17:06 74 90 02/03/25 17:03 77 100 02/03/25 16:58 61 100 02/03/25 16:53 94 H 97 02/03/25 16:49 71 92/57 L 02/03/25 16:48 79 97 02/03/25 16:43 84 98 02/03/25 16:38 87 98 02/03/25 16:34 84 100/58 L 02/03/25 16:33 84 96 02/03/25 16:28 98 H 98 02/03/25 16:23 82 98 02/03/25 16:20 70 108/66 02/03/25 16:18 71 96 02/03/25 16:13 78 98 02/03/25 16:10 72 113/66 02/03/25 16:08 80 97 02/03/25 16:03 79 97 02/03/25 16:00 18 02/03/25 16:00 18 02/03/25 15:58 80 98 02/03/25 15:53 75 99 02/03/25 15:50 89 102/57 L 02/03/25 15:48 89 98 02/03/25 15:43 83 97 02/03/25 15:38 87 96 02/03/25 15:35 100 H 105/58 L 02/03/25 15:33 88 97 02/03/25 15:28 110 H 96 02/03/25 15:23 96 H 97 02/03/25 15:19 101 H 107/61 02/03/25 15:18 96 H 96 02/03/25 15:14 97 H 107/62 02/03/25 15:13 98.1 F 88 18 96 02/03/25 15:09 86 108/63 02/03/25 15:08 78 96 02/03/25 15:07 73 108/65 02/03/25 15:05 78 103/57 L 02/03/25 15:03 97 02/03/25 15:03 93 H 02/03/25 15:03 78 111/56 L 02/03/25 15:01 82 02/03/25 15:01 92 H 121/59 L 81 L 02/03/25 14:58 77 99 02/03/25 14:57 94 H 112/72 02/03/25 14:55 83 109/62 02/03/25 14:53 95 H 114/84 98 02/03/25 14:51 93 H 111/75 02/03/25 14:49 93 H 113/69 02/03/25 14:48 99 H 98 02/03/25 14:45 89 120/76 02/03/25 14:43 101 H 118/76 98 02/03/25 14:41 87 117/73 02/03/25 14:39 96 H 131/80 02/03/25 14:38 94 H 96 02/03/25 14:37 81 123/81 02/03/25 14:35 101 H 118/78 02/03/25 14:33 91 H 97 02/03/25 14:28 95 H 98 02/03/25 14:23 91 H 98 02/03/25 14:18 91 H 99 02/03/25 14:13 95 H 97 02/03/25 14:08 85 98 02/03/25 14:01 90 108/67 02/03/25 13:58 90 97 02/03/25 13:53 84 98 02/03/25 13:48 72 97 Coding Level of Care Code None Diagnoses Non-reassuring cardiotocographic tracing O36.8390 Failure to progress in labor O62.2
[2025-02-04] MEDS ORDERED: MoRPHine SULFATE PF 1 MG/ML 10 ML AMP/VIAL ONE (01:41)
[2025-02-04] MEDS ORDERED: LIDOCAINE 2%/EPINEPHRINE 1:200,000 20 ML PF ONE (01:42)
[2025-02-04] MEDS ORDERED: OXYTOCIN 10 UNITS/ML VIAL ONE ×3 (01:44)
[2025-02-04] MEDS: CITRIC ACID/SODIUM CITRATE 15 ML UDC PO STA (01:57)
[2025-02-04] MEDS: ACETAMINOPHEN 500 MG TAB PO STA (01:57)
[2025-02-04] MEDS: AZITHROMYCIN 500 MG/255 ML BAG IV STA (02:07)
[2025-02-04] MEDS ORDERED: ONDANSETRON INJ 2 MG/ML 2 ML VIAL ONE ×2 (02:32)
[2025-02-04] MEDS ORDERED: NALBUPHINE HCL INJ 10 MG/ML AMP IV PRN (02:34)
[2025-02-04] MEDS ORDERED: NALOXONE HCL 0.4 MG/1 ML VIAL/CARP IV PRN (02:34)
[2025-02-04] MEDS ORDERED: ONDANSETRON INJ 2 MG/ML 2 ML VIAL IV PRN ×2 (02:34→20:34)
[2025-02-04] MEDS ORDERED: NALOXONE HCL 1 MG in SODIUM CHLORIDE 0.9% 1,000 ML IV PRN (02:34)
[2025-02-04] MEDS ORDERED: diphenhydrAMINE 50 MG/ML VIAL IV PRN ×2 (02:34→20:34)
[2025-02-04] MEDS ORDERED: NALOXONE HCL 0.08 MG in SYRINGE 1.8 ML IV PRN (02:34)
[2025-02-04] MEDS ORDERED: LACTATED RINGER'S 500 ML IV PRN (02:34)
[2025-02-04] MEDS ORDERED: HYDROmorphone INJ 0.5 MG/0.5 ML SYR IV PRN ×2 (02:34→20:34)
[2025-02-04] MEDS ORDERED: DROPERIDOL 5 MG/2 ML VIAL IV PRN (02:34)
[2025-02-04] MEDS ORDERED: NO NARCOTICS OR SEDATIVES SCH (02:45)
[2025-02-04] MEDS ORDERED: LACTATED RINGER'S 1,000 ML IV SCH (02:45)
--- NOTE | 2025-02-04 02:55 | Operative Report ---
[facility] Post Operative Report Pre & Post Diagnosis Operation Date: 02/04/25 02:10 SIUP @ 40w4d Nonreassuring heart tones Failure to progress in labor I identified the patient and participated in the time-out.: Yes Procedure Operation Date: 02/04/25 02:10 1' Low Transverse Section with 2 layer closure Surgeon Ela Quintanilla MD Interventional Tech Victoria Boggs RN Estimated Blood Loss 600 Findings Consistent with Post-Op Diagnosis Specimens placenta, cord blood Anesthesia Type L&D Only Epidural Exists Complications none Disposition Accompanied Patient To Recovery: Yes Disposition: L&D Description of Procedure The patient was placed operating table in the supine position with a leftward tilt. She was prepped and draped in standard sterile fashion. The anesthetic was tested and found to be adequate. A time-out was held, identifying correct patient, procedure, positioning and preoperative antibiotics. There were no concerns. A Pfannenstiel skin incision was made with a knife and taken down to the underlying layer of fascia. The fascia was incised in the midline with the knife and taken out laterally with scissors. The superior edge of the fascial incision was grasped, elevated and dissected off the underlying rectus both superiorly and inferiorly. The muscles were bluntly in the midline. The peritoneum was entered bluntly. The incision was then stretched. The bladder retractor was placed. The vesicouterine peritoneum was identified, entered with scissors and taken out laterally with scissors. The bladder flap was created digitally. A hysterotomy incision was created transversely in the lower uterine segment, final entry being accomplished in a blunt manner with the studio control operator's fingers. Clear amniotic fluid was encountered. The studio control operator's hand was used to elevate the head to the hysterotomy. The head was delivered using mild fundal pressure, and the shoulders and body followed without difficulty. The cord was clamped and cut and the was then handed off to the awaiting table games shift manager. Cord blood was obtained. The placenta was Manually extracted. The uterus was exteriorized and cleared of all clot and debris with moistened laparotomy sponges. The hysterotomy incision was repaired in two layers, the first in a running locked layer, the second in an imbricating layer. The ovaries and tubes were seen to be normal bilaterally. The uterus was gently replaced in the abdomen, and the gutters were cleared of clot and debris. A final inspection of the hysterotomy revealed good hemostasis. The rectus muscles were allowed to reapproximate naturally. The fascia was then reapproximated with 1 Vicryl in a running nonlocked manner. The fascia was examined and found to be free of defect following closure. The subcutaneous tissue was copiously irrigated and reapproximated with 0-chromic, then the skin edges were closed with 4-0 monocryl in a subcuticular fashion. A dermabond dressing was applied. The land was found to be draining clear yellow urine at completion of the procedure. I attest to the content of the Intraoperative Record and any orders documented therein. Any exceptions are noted below. I attest to the content of the Intraoperative Record and any orders documented therein. Any exceptions are noted below. OB Procedure Charges 41624
[2025-02-04] MEDS ORDERED: HYDROCORTISONE ACETATE 25 MG SUPP PR PRN (03:23)
[2025-02-04] MEDS ORDERED: CALCIUM CARBONATE 500 MG CHEWABLE TAB PO PRN (03:23)
[2025-02-04] MEDS ORDERED: SENNA 8.6 MG TAB PO PRN (03:23)
[2025-02-04] MEDS ORDERED: BENZOCAINE 20% SPRY 85 APPLN/85 GM CAN EXT PRN (03:23)
[2025-02-04] MEDS: KETOROLAC 30 MG/ML VIAL IV SCH (03:43)
[2025-02-04] MEDS: OXYTOCIN 20 UNITS/LR 1,002 ML IV SCH (03:52)
--- NOTE | 2025-02-04 06:49 | Anesthesiology Progress Note ---
Date of Service February 04, 2025 Anesthesia Post Procedure Vital Signs Vital Signs: Temp Pulse Resp BP Pulse Ox O2 Del Method 02/04/25 06:23 94 02/04/25 06:23 97 H 02/04/25 06:21 95 02/04/25 06:21 104 H 02/04/25 06:16 96 02/04/25 06:16 104 H 02/04/25 06:11 96 02/04/25 06:11 97 H 02/04/25 06:06 97 02/04/25 06:06 100 H 02/04/25 06:01 97 02/04/25 06:01 102 H 02/04/25 06:00 16 96 02/04/25 05:56 96 02/04/25 05:56 99 H 02/04/25 05:51 96 02/04/25 05:51 99 H 02/04/25 05:46 99 02/04/25 05:46 114 H 02/04/25 05:41 94 02/04/25 05:41 91 H 02/04/25 05:37 94 02/04/25 05:37 90 02/04/25 05:36 95 02/04/25 05:36 89 02/04/25 05:31 96 H 95 02/04/25 05:26 96 H 96 02/04/25 05:21 96 H 96 02/04/25 05:16 93 H 98 02/04/25 05:11 99 H 98 02/04/25 05:06 93 H 97 02/04/25 05:03 90 113/57 L 02/04/25 05:02 37.0 C 16 02/04/25 05:01 101 H 98 02/04/25 05:00 16 95 02/04/25 04:56 105 H 97 02/04/25 04:51 104 H 96 02/04/25 04:46 108 H 98 02/04/25 04:42 97 H 114/55 L 02/04/25 04:41 107 H 96 02/04/25 04:36 100 H 97 02/04/25 04:32 16 02/04/25 04:32 96 H 118/58 L 02/04/25 04:31 97 H 97 02/04/25 04:26 105 H 97 02/04/25 04:22 104 H 119/59 L 02/04/25 04:21 93 H 96 02/04/25 04:16 94 H 97 02/04/25 04:12 98 H 124/64 02/04/25 04:11 90 98 02/04/25 04:06 93 H 98 02/04/25 04:02 16 02/04/25 04:02 16 02/04/25 04:02 79 128/60 02/04/25 04:01 83 97 02/04/25 03:57 103 H 94 02/04/25 03:56 98 H 95 02/04/25 03:52 16 02/04/25 03:52 120/59 L 02/04/25 03:51 97 H 95 02/04/25 03:47 88 94 02/04/25 03:46 84 95 02/04/25 03:42 95 H 18 125/59 L 02/04/25 03:41 92 H 96 02/04/25 03:36 92 H 96 02/04/25 03:32 95 H 20 124/59 L 02/04/25 03:31 92 H 97 02/04/25 03:26 101 H 98 02/04/25 03:22 95 H 18 107/59 L 02/04/25 03:21 97 H 98 02/04/25 03:18 98 H 89 L 02/04/25 03:16 93 H 18 114/52 L 98 02/04/25 03:15 92 H 198/135 H 02/04/25 03:11 100 H 99 02/04/25 03:06 106 H 98 02/04/25 03:03 36.9 C 97 H 18 105/50 L 02/04/25 03:01 103 H 98 02/04/25 02:03 137 H 95 02/04/25 01:58 137 H 96 02/04/25 01:56 141 H 96/55 L 02/04/25 01:53 153 H 97 02/04/25 01:48 128 H 94 02/04/25 01:43 123 H 94 02/04/25 01:41 151 H 105/59 L 02/04/25 01:38 148 H 94 02/04/25 01:33 106 H 94 02/04/25 01:28 125 H 96 02/04/25 01:23 155 H 97 02/04/25 01:18 147 H 95 02/04/25 01:13 139 H 95 02/04/25 01:12 136 H 100/56 L 02/04/25 01:08 106 H 93 02/04/25 01:03 133 H 96 02/04/25 01:01 37.6 C H 02/04/25 00:58 86 93 02/04/25 00:56 86 107/56 L 02/04/25 00:53 100 H 94 02/04/25 00:48 83 94 02/04/25 00:43 95 H 108/59 L 93 02/04/25 00:38 93 H 93 02/04/25 00:33 90 93 02/04/25 00:28 105 H 92 02/04/25 00:27 108 H 109/63 02/04/25 00:23 89 92 02/04/25 00:18 104 H 92 02/04/25 00:15 16 02/04/25 00:15 37.9 C H 16 02/04/25 00:13 98 H 93 02/04/25 00:11 118 H 110/56 L 02/04/25 00:08 98 H 91 02/04/25 00:03 95 H 93 02/03/25 23:58 91 02/03/25 23:58 99 H 02/03/25 23:58 88 112/57 L 02/03/25 23:53 92 H 92 02/03/25 23:48 108 H 92 02/03/25 23:43 101 H 93 02/03/25 23:41 112 H 109/59 L 02/03/25 23:38 93 H 92 02/03/25 23:33 95 H 93 02/03/25 23:28 90 93 02/03/25 23:26 85 110/57 L 02/03/25 23:23 95 H 94 02/03/25 23:18 100 H 96 02/03/25 23:13 96 H 95 02/03/25 23:11 103 H 110/59 L 02/03/25 23:08 130 H 96 02/03/25 23:03 129 H 95 02/03/25 22:58 117 H 94 02/03/25 22:56 109 H 108/53 L 02/03/25 22:53 104 H 94 02/03/25 22:48 104 H 95 02/03/25 22:43 112 H 98 02/03/25 22:42 111 H 118/56 L 02/03/25 22:38 120 H 98 02/03/25 22:37 121 H 133/55 L 02/03/25 22:33 103 H 98 02/03/25 22:31 16 02/03/25 22:31 37.4 C 16 02/03/25 22:29 162 H 132/68 02/03/25 22:28 159 H 84 L 02/03/25 22:25 111 H 82/41 L 02/03/25 22:23 104 H 84 L 02/03/25 22:18 115 H 91 02/03/25 22:13 116 H 99 02/03/25 22:12 104 H 99/53 L 02/03/25 22:10 103 H 102/57 L 02/03/25 22:08 99 02/03/25 22:08 115 H 02/03/25 22:08 121 H 87/59 L 02/03/25 22:06 123 H 83/45 L 02/03/25 22:03 118 H 100 02/03/25 22:02 110 H 81/53 L 02/03/25 22:00 111 H 79/51 L 02/03/25 21:58 99 02/03/25 21:58 112 H 02/03/25 21:58 118 H 90/51 L 02/03/25 21:56 117 H 93/52 L 02/03/25 21:54 107 H 108/54 L 02/03/25 21:53 118 H 78 L 02/03/25 21:50 102 H 128/75 02/03/25 21:48 119 H 98 02/03/25 21:43 128 H 99 02/03/25 21:38 107 H 100 02/03/25 21:36 99 H 136/75 02/03/25 21:33 97 H 100 02/03/25 21:28 107 H 100 02/03/25 21:23 102 H 100 02/03/25 21:20 100 H 131/56 L 94 02/03/25 21:18 93 H 98 02/03/25 21:13 104 H 98 02/03/25 21:08 98 H 99 02/03/25 21:04 88 113/68 02/03/25 21:03 97 H 100 02/03/25 20:58 97 H 100 02/03/25 20:53 90 100 02/03/25 20:49 83 113/65 02/03/25 20:48 83 100 02/03/25 20:44 18 02/03/25 20:44 37.1 C 18 02/03/25 20:43 85 100 02/03/25 20:38 91 H 100 02/03/25 20:35 82 119/69 02/03/25 20:33 102 H 100 02/03/25 20:28 105 H 100 02/03/25 20:25 130 H 94/66 L 02/03/25 20:23 139 H 99 02/03/25 20:20 93 H 83/51 L 02/03/25 20:19 88 80 L 02/03/25 20:18 91 H 99 02/03/25 20:13 99 H 99 02/03/25 20:11 107 H 117/60 02/03/25 20:10 126 H 88 L 02/03/25 20:08 111 H 100 02/03/25 20:05 105 H 88 L 02/03/25 20:03 100 H 99 02/03/25 19:58 90 100 02/03/25 19:53 107 H 100 02/03/25 19:50 87 111/56 L 93 02/03/25 19:48 108 H 98 02/03/25 19:43 98 H 98 02/03/25 19:38 97 H 99 02/03/25 19:35 105 H 109/62 02/03/25 19:33 101 H 99 02/03/25 19:28 107 H 98 02/03/25 19:23 92 H 98 02/03/25 19:21 83 111/65 02/03/25 19:19 89 94 02/03/25 19:18 93 H 99 02/03/25 19:13 94 H 97 02/03/25 19:12 90 94 02/03/25 19:08 90 99 02/03/25 19:06 88 117/70 02/03/25 19:05 Room Air 02/03/25 19:05 94 H 93 02/03/25 19:03 37.0 C 90 16 98 02/03/25 18:59 85 93 02/03/25 18:58 83 95 02/03/25 18:53 98 H 93 02/03/25 18:51 85 121/63 02/03/25 18:48 96 H 98 02/03/25 18:43 97 H 99 02/03/25 18:38 88 97 02/03/25 18:34 110 H 121/54 L 02/03/25 18:33 97 H 99 02/03/25 18:30 90 105/56 L 02/03/25 18:28 92 H 99 02/03/25 18:25 101 H 93 02/03/25 18:23 99 H 98 02/03/25 18:19 97 H 91 02/03/25 18:18 88 97 02/03/25 18:13 99 H 91 02/03/25 18:08 89 100 02/03/25 18:05 93 H 100/55 L 02/03/25 18:03 93 H 99 02/03/25 17:58 91 H 99 02/03/25 17:53 101 H 100 02/03/25 17:52 88 93 02/03/25 17:49 85 119/72 02/03/25 17:48 78 99 02/03/25 17:47 95 H 93 02/03/25 17:43 86 99 02/03/25 17:40 36.8 C 81 18 90 02/03/25 17:38 85 98 02/03/25 17:37 78 118/67 02/03/25 17:34 77 182/134 H 02/03/25 17:33 84 100 02/03/25 17:31 82 92 02/03/25 17:30 20 02/03/25 17:30 20 02/03/25 17:28 81 100 02/03/25 17:25 103 H 89 L 02/03/25 17:23 90 183/133 H 100 02/03/25 17:19 91 H 93 02/03/25 17:18 92 H 99 02/03/25 17:13 86 100 02/03/25 17:08 79 100 02/03/25 17:06 74 90 02/03/25 17:03 77 100 02/03/25 16:58 61 100 02/03/25 16:53 94 H 97 02/03/25 16:49 71 92/57 L 02/03/25 16:48 79 97 02/03/25 16:43 84 98 02/03/25 16:38 87 98 02/03/25 16:34 84 100/58 L 02/03/25 16:33 84 96 02/03/25 16:28 98 H 98 02/03/25 16:23 82 98 02/03/25 16:20 70 108/66 02/03/25 16:18 71 96 02/03/25 16:13 78 98 02/03/25 16:10 72 113/66 02/03/25 16:08 80 97 02/03/25 16:03 79 97 02/03/25 16:00 18 02/03/25 16:00 18 02/03/25 15:58 80 98 02/03/25 15:53 75 99 02/03/25 15:50 89 102/57 L 02/03/25 15:48 89 98 02/03/25 15:43 83 97 02/03/25 15:38 87 96 02/03/25 15:35 100 H 105/58 L 02/03/25 15:33 88 97 02/03/25 15:28 110 H 96 02/03/25 15:23 96 H 97 02/03/25 15:19 101 H 107/61 02/03/25 15:18 96 H 96 02/03/25 15:14 97 H 107/62 02/03/25 15:13 36.7 C 88 18 96 02/03/25 15:09 86 108/63 02/03/25 15:08 78 96 02/03/25 15:07 73 108/65 02/03/25 15:05 78 103/57 L 02/03/25 15:03 97 02/03/25 15:03 93 H 02/03/25 15:03 78 111/56 L 02/03/25 15:01 82 02/03/25 15:01 92 H 121/59 L 81 L 02/03/25 14:58 77 99 02/03/25 14:57 94 H 112/72 02/03/25 14:55 83 109/62 02/03/25 14:53 95 H 114/84 98 02/03/25 14:51 93 H 111/75 02/03/25 14:49 93 H 113/69 02/03/25 14:48 99 H 98 02/03/25 14:45 89 120/76 02/03/25 14:43 101 H 118/76 98 02/03/25 14:41 87 117/73 02/03/25 14:39 96 H 131/80 02/03/25 14:38 94 H 96 02/03/25 14:37 81 123/81 02/03/25 14:35 101 H 118/78 02/03/25 14:33 91 H 97 02/03/25 14:28 95 H 98 02/03/25 14:23 91 H 98 02/03/25 14:18 91 H 99 02/03/25 14:13 95 H 97 02/03/25 14:08 85 98 02/03/25 14:01 90 108/67 02/03/25 13:58 90 97 02/03/25 13:53 84 98 02/03/25 13:48 72 97 02/03/25 13:13 85 116/55 L 02/03/25 13:00 18 02/03/25 13:00 18 02/03/25 12:01 83 109/58 L 02/03/25 11:32 36.9 C 02/03/25 11:30 18 02/03/25 11:30 18 02/03/25 11:01 75 115/66 02/03/25 10:30 18 02/03/25 10:30 18 02/03/25 10:02 90 109/62 02/03/25 10:00 16 02/03/25 10:00 16 02/03/25 09:01 85 107/64 02/03/25 08:50 36.8 C 18 Room Air 02/03/25 08:08 112 H 105/61 02/03/25 08:07 18 02/03/25 08:07 36.8 C 112 H 18 105/61 Pain Intensity Abdomen: Pain Intensity: 4 Notes Mental Status: alert / awake / arousable Patient Amnestic to Procedure: Yes Nausea / Vomiting: adequately controlled Pain: adequately controlled Airway Patency, RR, SpO2: stable & adequate BP & HR: stable & adequate Hydration State: stable & adequate Neuraxial Anesthesia: was administered and sensory block is resolving Anesthetic Complications: no major complications apparent
[2025-02-04] MEDS: DOCUSATE SODIUM 100 MG CAP PO SCH (09:01)
[2025-02-04] MEDS: SIMETHICONE 80 MG CHEW PO SCH (09:01)
[2025-02-04] MEDS: PRENATAL VITAMIN 1 TAB PO SCH (09:01)
[2025-02-04] MEDS: FERROUS SULFATE 325 MG TAB PO SCH (09:01)
[2025-02-04] MEDS: ACETAMINOPHEN 325 MG TAB PO SCH (09:01)
[2025-02-04] MEDS ORDERED: diphenhydrAMINE Capsule 25 MG CAP PO PRN (20:34)
[2025-02-04] MEDS ORDERED: PROMETHAZINE 12.5 MG/50.5 ML BAG IV PRN (20:34)
[2025-02-05] MEDS ORDERED: KETOROLAC 30 MG/ML VIAL IV PRN (02:57)
[2025-02-05] MEDS: IBUPROFEN 600 MG TAB PO SCH (03:14)
--- NOTE | 2025-02-05 05:51 | Obstetrical Progress Note ---
Date of Service <Aliza Stiles DO - Last Filed: 02/05/25 07:13> February 05, 2025 Assessment & Plan <Aliza Stiles DO - Last Filed: 02/05/25 07:13> (1) care following delivery: Plan 34 yo post- day 1 s/p . Feels well today. Vital signs stable Continue post- care Encourage ambulation and Pain controlled with ibuprofen Hgb stable <Manjula Gomes MD, FACOG - Last Filed: 02/05/25 07:27> (1) care following delivery: Subjective <Aliza Stiles DO - Last Filed: 02/05/25 07:13> 34 yo post- day 1 s/p . Ambulation: ambulating normally Voiding: no voiding problems Passing Gas:: Yes Passing Stool:: No Diet Tolerance:: regular diet Lochia:: Small Feeding Type:: breast feeding Current Pain Level: 1/10 Resting comfortably this AM in NAD. Denies MURILLO, CP, SOB, N/V/D, LE pain/swelling. Review of Systems All systems reviewed & are unremarkable except as noted in HPI & below Physical Exam <Aliza Stiles DO - Last Filed: 02/05/25 07:13> General: patient resting comfortably, NAD, non-toxic in appearance, AA&O x 4, answers questions appropriately. Skin: warm, dry, intact HEENT: NC/AT, anicteric sclera, conjunctiva without injection, moist mucus membranes. Heart: +S1/S2, regular, no m/r/g Lungs: equal air entry bilaterally, no rales/rhonchi/wheezes Abd: +BS, soft, NT/ND, uterine fundus firm at umbilicus, caesarean incision C/D/I. Ext: warm, no clubbing/cyanosis or edema, Gerard's neg. Neuro: nonfocal, patient AA&O x 4, speech intact, no facial droop, moving all extremities on command. Results & Data <Aliza Stiles DO - Last Filed: 02/05/25 07:13> Vital Signs (Past 12 Hours) Vital Signs Temp Pulse Resp BP Pulse Ox O2 Del Method 02/05/25 03:00 36.4 C L 89 16 102/65 94 Room Air 02/04/25 23:55 36.5 C 76 16 100/64 96 Room Air 02/04/25 21:00 18 96 02/04/25 19:40 16 95 02/04/25 19:40 36.6 C 86 16 99/60 L 95 Room Air 02/04/25 19:27 16 93 02/04/25 19:02 18 95 Laboratory Results OB Labs: Blood Type A Positive 07/18/24 Antibody Screen NEGATIVE 07/18/24 Hgb 11.3 g/dl (12.0-16.0) L 11/06/24 Hct 33.3 % (37.0-47.0) L 11/06/24 MCV 91.5 fL (80.0-100.0) 07/18/24 Plt Count 249 K/uL (130-400) 07/18/24 Rubella IgG Antibody Immune (Immune) 07/18/24 Treponema pallidum Ab Negative (Negative) 11/06/24 Hep Bs Antigen Negative (Negative) 07/18/24 Hepatitis C Antibody Negative (Negative) 07/18/24 HIV 1&2 Ab/P24 Ag 4thGn Negative (Negative) 07/18/24 Glucose 1 Hr 50 gm 139 mg/dl (70-130) H 11/06/24 Maternal Serum AFP 17.3 ng/mL 08/15/24 OB Optional Labs: Chlamydia trachomatis RNA Not Detected (NotDetected) 07/18/24 Neisseria gonorrhoeae RNA Not Detected (NotDetected) 07/18/24 Alpha Fetoprotein Triple Screen SEE NOTE 08/15/24 Supervising Physician <Manjula Gomes MD, FACOG - Last Filed: 02/05/25 07:27> Co-Signing Physician Notes Resident Physician Supervision Note: I was present with Dr. Stiles during the history and exam. I discussed the case with the resident and agree with the findings and plan as documented in the note. Any exceptions or clarifications are listed here: doing well, eating, voiding, +flatus, ambulating. abd soft ff 2 down nt, incision c/d/i with dermabond. ext nt calves. pod #1 s/p c/s doing well. routine care. breast feeding. hgb pending. Documented By: Manjula Gomes MD, FACOG Resident Activity Tracking <Aliza Stiles, DO - Last Filed: 02/05/25 07:13> Resident Involvement: Resident Care Provided Care Provided: OB Delivery
[2025-02-05] MEDS: MAGNESIUM HYDROXIDE SUSP 30 ML UDC PO PRN (08:57)
[2025-02-05 09:00] LABS: Hematocrit (blood only) 29.7 % (37.0-47.0); Hemoglobin 10.0 g/dl (12.0-16.0); Immature Granulocytes # (auto) 0.08 K/uL (0.01-0.20); Immature Granulocytes % (auto) 0.8 %; Mean Corpuscular Hemoglobin 32.2 pg (25.0-34.0); Mean Corpuscular Volume 95.5 fL (80.0-100.0); Platelet Count 167 K/uL (130-400); RDW Standard Deviation 51.3 fL (36.4-46.3); Red Blood Count 3.11 M/uL (4.20-5.40); White Blood Count 10.36 K/ul (4.8-10.8)
[2025-02-05 23:06] VITALS: RESP 16
[2025-02-06] MEDS: IBUPROFEN 600 MG TAB PO PRN (03:07)
--- NOTE | 2025-02-06 05:49 | Obstetrical Progress Note ---
Date of Service <Aliza Stiles DO - Last Filed: 02/06/25 06:46> February 06, 2025 Assessment & Plan <Ailza Stiles DO - Last Filed: 02/06/25 06:46> (1) care following delivery: Plan 34 yo post- day 2 s/p . Feels well today. Vital signs stable Continue post- care Encourage ambulation and Pain controlled with ibuprofen Hgb stable Discharge home today, follow up with Dr. Quintanilla in 6 weeks. <Caroline Burgos, DO - Last Filed: 02/06/25 06:50> (1) care following delivery: Subjective <Aliza Stiles DO - Last Filed: 02/06/25 06:46> 34 yo post- day 2 s/p . Ambulation: ambulating normally Voiding: no voiding problems Passing Gas:: Yes Passing Stool:: No Diet Tolerance:: regular diet Lochia:: Small Feeding Type:: breast and bottle feeding Current Pain Level: 0/10 Resting comfortably this AM in NAD. Denies MURILLO, CP, SOB, N/V/D, LE pain/swelling. Review of Systems All systems reviewed & are unremarkable except as noted in HPI & below Physical Exam <Aliza Stiles DO - Last Filed: 02/06/25 06:46> General: patient resting comfortably, NAD, non-toxic in appearance, AA&O x 4, answers questions appropriately. Skin: warm, dry, intact HEENT: NC/AT, anicteric sclera, conjunctiva without injection, moist mucus membranes. Heart: +S1/S2, regular, no m/r/g Lungs: equal air entry bilaterally, no rales/rhonchi/wheezes Abd: +BS, soft, NT/ND, uterine fundus firm 1 FB below umbilicus, caesarean incision C/D/I. Ext: warm, no clubbing/cyanosis, +BLE edema, Gerard's neg. Neuro: nonfocal, patient AA&O x 4, speech intact, no facial droop, moving all extremities on command. Results & Data <Aliza Stiles DO - Last Filed: 02/06/25 06:46> Vital Signs (Past 12 Hours) Vital Signs Temp Pulse Resp BP Pulse Ox O2 Del Method 02/05/25 23:04 36.7 C 84 16 118/75 95 Room Air 02/05/25 19:09 36.7 C 89 18 106/67 96 Room Air Laboratory Results OB Labs: Blood Type A Positive 07/18/24 Antibody Screen NEGATIVE 07/18/24 Hgb 11.3 g/dl (12.0-16.0) L 11/06/24 Hct 33.3 % (37.0-47.0) L 11/06/24 MCV 91.5 fL (80.0-100.0) 07/18/24 Plt Count 249 K/uL (130-400) 07/18/24 Rubella IgG Antibody Immune (Immune) 07/18/24 Treponema pallidum Ab Negative (Negative) 11/06/24 Hep Bs Antigen Negative (Negative) 07/18/24 Hepatitis C Antibody Negative (Negative) 07/18/24 HIV 1&2 Ab/P24 Ag 4thGn Negative (Negative) 07/18/24 Glucose 1 Hr 50 gm 139 mg/dl (70-130) H 11/06/24 Maternal Serum AFP 17.3 ng/mL 08/15/24 OB Optional Labs: Chlamydia trachomatis RNA Not Detected (NotDetected) 07/18/24 Neisseria gonorrhoeae RNA Not Detected (NotDetected) 07/18/24 Alpha Fetoprotein Triple Screen SEE NOTE 08/15/24 Supervising Physician <Caroline Burgos, - Last Filed: 02/06/25 06:50> Co-Signing Physician Notes Resident Physician Supervision Note: I interviewed and examined the patient. Discussed with Dr. Stiles and agree with findings and plan as documented in the note. Any exceptions or clarifications are listed here: POD#2 doing well, DC home. FU 6w PP. Documented By: Caroline Burgos DO Resident Activity Tracking <Aliza Stiles DO - Last Filed: 02/06/25 06:46> Resident Involvement: Resident Care Provided Care Provided: OB Delivery
[2025-02-06 08:08] LABS: Hematocrit (blood only) 27.8 % (37.0-47.0); Hemoglobin 9.4 g/dl (12.0-16.0)
[2025-02-06] MEDS: MoRPHine SULFATE PF 1 MG/ML 10 ML AMP/VIAL EPI ONE (19:13)
[2025-02-06] MEDS: LACTATED RINGER'S 1,000 ML IV SCH ×2 (19:13→19:14)
[2025-02-06] MEDS: DIPHTHER/TETAN/PERTUS Vaccine (Tdap, Adol/Adult) 0.5mL IM ONE (19:13)
[2025-02-06] MEDS: SODIUM CHLORIDE 0.9% 1,000 ML IV SCH (19:13)
[2025-02-07] MEDS: ACETAMINOPHEN 325 MG TAB PO PRN (07:42)
[2025-02-07 08:26] VITALS: BP 111/72; TEMP 97.7; O2SAT 95
[2025-02-07 10:38] VITALS: PULSE 70
--- NOTE | 2025-02-10 07:30 | Discharge Summary ---
Date of Service February 10, 2025 Admission HPI Per Admitting Provider 34 yo at 40w3d admitted for IOL for postdates. Patient denies contractions, fluid loss, bloody show. Active movement. She goes to regular OB appointments. She takes vitamins and docusate sodium as needed. Denies MURILLO, CP, SOB, N/V/D, LE pain. GBS neg, A+ blood type Discharge Data Consultations 02/03/25 07:57 Consult Anesthesiology Stat Procedures Performed Operation Date: 02/04/25 02:10 Actual Procedures p Section in LD for live female child at 0229(Not Applicable) - Ela Quintanilla MD Hospital Course (1) care following delivery: Plan 34 yo post- day 2 s/p . Feels well today. Vital signs stable Continue post- care Encourage ambulation and Pain controlled with ibuprofen Hgb stable Discharge home today, follow up with Dr. Quintanilla in 6 weeks. Supervising Physician Co-Signing Physician Notes Resident Physician Supervision Note: I interviewed and examined the patient. Discussed with Dr. Stiles and agree with findings and plan as documented in the note. Any exceptions or clarifications are listed here: POD#2 doing well, DC home. FU 6w PP. Documented By: Caroline Burgos DO Coding Level of Care Code 97084 IN/OBS DISCH 30 MIN/LESS Diagnoses care following delivery Z39.2
== END 2025-02-07 12:05 | disposition home or self-care (01) | DRG 788 ==
LOC: 4S1 07:53 → 4E2 02-04 06:41
DX: O48.0 Post-term pregnancy; Z3A.40 40 weeks gestation of pregnancy; O62.1 Secondary uterine inertia; O76 Abnormality in fetal heart rate and rhythm complicating labor and delivery; Z37.0 Single live birth